=== PATIENT | male | born 1980 ===

== ENCOUNTER → 2019-01-28 20:28 | Outpatient (REF) | payer OTHER, SELFPAY ==
[2019-01-28 21:16] LABS: Add Manual Diff / Slide Review NO; Basophils Absolute Auto 100 /uL (0-100); Eosinophils Absolute Auto 300 /uL (0-450); Eosinophils Percent Auto 3.7 % (2-4); Hematocrit 34.7 % (41-53); Hemoglobin 11.1 g/dL (13.5-17.5); Lymphocytes Absolute Auto 1300 /uL (1100-4500); Lymphocytes Percent Auto 18.7 % (25-40); Mean Corpuscular HGB Conc 32.1 % (30-36); Mean Corpuscular Hemoglobin 30.9 PG (26-34); Mean Corpuscular Volume 96.2 fL (80-100); Monocytes Absolute Auto 500 /uL (0-900); Monocytes Percent Auto 7.1 % (3-14); Neutrophils Absolute Auto 4800 /uL (1500-7000); Neutrophils Percent Auto 69.5 % (50-75); Platelet Count 668 X10^3/uL (150-400); Red Cell Distribution Width 14.5 % (11.6-14.8); Reticulocyte Count, Percent 3.7 % (0.87-2.60); White Blood Cell Count 6.9 X10^3/uL (4.5-11.0)
[2019-01-29 02:50] LABS: Folate 11.8 ng/mL (2.76-20.0)
== END ==
LOC: LAB 20:28
PROVIDERS: Visit Provider Family Medicine
DX: D64.9 Anemia, unspecified (principal)
CPT/HCPCS: 36415; 82728; 82746; 85025; 85045